=== PATIENT | male | born 1935 | race Caucasian/White ===

== ENCOUNTER 2020-07-05 04:54 | Observation (INO) ==
[2020-07-05] MEDS ORDERED: Nitroglycerin 0.4 MG TAB.SUBL SL PRN (05:19)
[2020-07-05 05:20] LABS: Basophils # 0.1 K/mcL (0.0-0.2); Basophils % 0.6 %; Eosinophils # 0.3 K/mcL (0.0-0.6); Eosinophils % 3.8 %; Hemoglobin 13.6 g/dL (12.9-16.9); Immature Granulocytes % 0.3 % (0-4); Lymphocytes # 1.2 K/mcL (0.6-4.6); Mean Corpuscular HGB Conc 33.2 g/dL (31.6-35.5); Mean Corpuscular Hemoglobin 27.8 pg (28.0-33.3); Mean Corpuscular Volume 83.7 fL (83.0-100.0); Mean Platelet Volume 9.8 fL (9.4-12.4); Monocytes # 0.9 K/mcL (0.0-1.3); Monocytes % 10.3 %; Neutrophils # 6.2 K/mcL (1.6-8.9); Platelet Count 244 K/mcL (140-400); White Blood Count 8.7 K/mcL (4.3-11.1)
[2020-07-05 05:38] LABS: BUN/Creatinine Ratio 26 (6-26); Blood Urea Nitrogen 27 mg/dL (8-23); Carbon Dioxide 26 mEq/L (23-29); Chloride 99 mEq/L (98-107); Glucose 176 mg/dL (70-105); Osmolality,Calculated 287 (280-300); Sodium 134 mEq/L (136-145); eGFR For African Americans > 60 (> 60); eGFR For Non-African Americans > 60 (> 60)
[2020-07-05 05:39] LABS: Troponin I < 0.03 ng/mL (< 0.04)
[2020-07-05] MEDS ORDERED: Aspirin 325 MG TABLET PO ONE (05:43)
[2020-07-05] MEDS ORDERED: Ondansetron 4 MG/2 ML VIAL IVP PRN (07:06)
[2020-07-05] MEDS ORDERED: Naloxone 0.4 MG/ML INJ IVP PRN (07:06)
[2020-07-05] MEDS ORDERED: Perflutren Lipid Microsphere 1.3 ML in 0.9 % Sodium Chloride 8.7 ML IVP PRN (07:09)
[2020-07-05] MEDS: Lisinopril-HCTZ 20-12.5mg TABLET PO SCH (12:39)
[2020-07-05] MEDS: Aspirin Enteric Coated 81 MG Tablet PO SCH (12:39)
[2020-07-06 02:37] LABS: Basophils # 0.1 K/mcL (0.0-0.2); Basophils % 0.7 %; Eosinophils # 0.4 K/mcL (0.0-0.6); Eosinophils % 6.1 %; Hematocrit 36.5 % (37.5-50.1); Hemoglobin 12.1 g/dL (12.9-16.9); Immature Granulocytes % 0.4 % (0-4); Lymphocytes # 1.3 K/mcL (0.6-4.6); Lymphocytes % 18.8 %; Mean Corpuscular HGB Conc 33.2 g/dL (31.6-35.5); Mean Corpuscular Hemoglobin 27.7 pg (28.0-33.3); Mean Corpuscular Volume 83.5 fL (83.0-100.0); Mean Platelet Volume 9.3 fL (9.4-12.4); Monocytes % 13.7 %; Neutrophils # 4.3 K/mcL (1.6-8.9); Platelet Count 235 K/mcL (140-400); Red Blood Count 4.37 M/mcL (4.19-5.50); Segmented Neutrophils % 60.3 %; White Blood Count 7.1 K/mcL (4.3-11.1)
[2020-07-06 02:55] LABS: Alanine Aminotransferase 11 Units/L (7-52); Albumin 3.5 g/dL (3.5-5.7); Albumin/Globulin Ratio 1.3 (1.1-2.2); Alkaline Phosphatase 56 Units/L (34-104); Aspartate Amino Transferase 14 Units/L (13-39); BUN/Creatinine Ratio 23 (6-26); Bilirubin,Total 0.5 mg/dL (0.3-1.0); Blood Urea Nitrogen 26 mg/dL (8-23); Calcium 9.4 mg/dL (8.6-10.3); Carbon Dioxide 27 mEq/L (23-29); Chloride 102 mEq/L (98-107); Globulin 2.6 g/dL (2.4-3.5); Glucose 130 mg/dL (70-105); Magnesium 1.8 mg/dL (1.6-2.6); Osmolality,Calculated 287 (280-300); Sodium 135 mEq/L (136-145); Total Protein 6.1 g/dL (6.4-8.9); eGFR For African Americans > 60 (> 60); eGFR For Non-African Americans > 60 (> 60)
[2020-07-06] MEDS ORDERED: *HR* Enoxaparin 40 MG/0.4 ML SYRINGE SQ SCH (06:00)
[2020-07-06] MEDS ORDERED: Regadenoson 0.4 MG/5 ML SYRINGE IVP ONE (06:32)
[2020-07-06] MEDS: Aspirin Enteric Coated 81 MG Tablet PO SCH (08:56)
[2020-07-06] MEDS: Lisinopril-HCTZ 20-12.5mg TABLET PO SCH (08:56)
[2020-07-06] MEDS ORDERED: Perflutren Lipid Microsphere 1.3 ML in 0.9 % Sodium Chloride 8.7 ML IVP PRN (11:52)
[2020-07-06 16:48] VITALS: BP 133/74
== END 2020-07-06 17:55 | disposition home or self-care (01) ==
LOC: EMEROOARM 04:54 → 3ANU 04:54 → SUATTDRO 06:09 → 3ANU 08:52
PROVIDERS: ADMIT Internal Medicine; ATTEND Student in an Organized Health Care Education/Training Program